=== PATIENT | male | born 1955 | race Asian ===

== ENCOUNTER 2017-04-29 10:29 | Emergency (ER) | payer OTHER ==
[2017-04-29 11:09] LABS: URINE BLOOD (Dip) POC 2+ (NEGATIVE); URINE GLUCOSE (Dip) POC Negative (NEGATIVE); URINE KETONES (Dip) POC Negative (NEGATIVE); URINE LEUKOCYTE EST (Dip) POC 3+ (NEGATIVE); URINE NITRITE (Dip) POC Negative (NEGATIVE); URINE TOTAL PROTEIN POC 1+ (NEGATIVE)
== END 2017-04-29 11:30 | disposition home or self-care (01) ==
LOC: FTE 10:29
DX: N39.0 Urinary tract infection, site not specified (principal); I25.10 Atherosclerotic heart disease of native coronary artery without angina pectoris; Z79.82 Long term (current) use of aspirin
CPT/HCPCS: 81003; 99284

== ENCOUNTER 2017-06-07 08:00 | Day surgery (SDC) | payer OTHER ==
[2017-06-07] MEDS ORDERED: FENTAnyl 50 MCG/ML VIAL (09:28)
[2017-06-07] MEDS ORDERED: MIDAZOLAM 1 MG/ML 2 ML INJ ×2 (09:28)
== END 2017-06-07 13:55 | disposition home or self-care (01) ==
LOC: GIL 08:00
DX: Z12.11 Encounter for screening for malignant neoplasm of colon (principal); K64.8 Other hemorrhoids
CPT/HCPCS: 45378